=== PATIENT | female | born 1990 | race Caucasian/White ===

== ENCOUNTER → 2020-02-25 | Outpatient (CLI) | payer SELFPAY ==
[2020-02-25 14:24] LABS: HEMATOCRIT 38.7 % (36.0-47.0); HEMOGLOBIN 11.9 g/dl (12.0-15.5); MEAN CORPUSCULAR HEMOGLOBIN 28.8 pg (27.0-33.0); MEAN CORPUSCULAR HGB CONC 30.7 g/dl (32.0-36.5); MEAN CORPUSCULAR VOLUME 93.7 fl (80.0-96.0); PLATELET COUNT, AUTOMATED 285 10^3/uL (150-450); RED BLOOD COUNT 4.13 10^6/uL (4.00-5.40); WHITE BLOOD COUNT 8.4 10^3/uL (4.0-10.0)
[2020-02-25 14:50] LABS: ALBUMIN 3.9 GM/DL (3.2-5.2); ALT/SGPT 19 U/L (12-78); BILIRUBIN,TOTAL 0.2 MG/DL (0.2-1.0); BLOOD UREA NITROGEN 13 MG/DL (7-18); CALCIUM LEVEL 9.1 MG/DL (8.5-10.1); CARBON DIOXIDE LEVEL 33 MEQ/L (21-32); CHLORIDE LEVEL 102 MEQ/L (98-107); CREATININE FOR GFR 0.89 MG/DL (0.55-1.30); GLOMERULAR FILTRATION RATE > 60.0 (>60); GLUCOSE, FASTING 90 MG/DL (70-100); POTASSIUM SERUM 4.6 MEQ/L (3.5-5.1); SODIUM LEVEL 137 MEQ/L (136-145); TOTAL PROTEIN 7.8 GM/DL (6.4-8.2)
[2020-02-25 14:52] LABS: HCG, SERUM QUALITATIVE NEGATIVE (NEGATIVE)
[2020-02-25 15:06] LABS: HEPATITIS B SURFACE ANTIGEN NEGATIVE (NEGATIVE)
[2020-02-25 15:34] LABS: HEPATITIS C VIRUS ABY INDEX 0.3 INDEX (<0.8)
[2020-02-25 15:35] LABS: HIV 1&2 SCREEN CENTAUR NEGATIVE (NEGATIVE)
[2020-02-25 16:37] LABS: CHLAMYDIA DNA AMPLIFICATION NEGATIVE (NEGATIVE); GC DNA AMPLIFICATION NEGATIVE (NEGATIVE)
--- NOTE | 2020-02-26 17:59 | ECGEPIP ---
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
== END ==
LOC: M LAB 12:33
PROVIDERS: ATTEND Family Medicine
DX: F11.20 Opioid dependence, uncomplicated (principal)

== ENCOUNTER → 2020-03-12 | Outpatient (CLI) | payer MEDICAID, OTHER | LOC: M LAB 13:23 | PROVIDERS: ATTEND Family Medicine | DX: F11.20 Opioid dependence, uncomplicated (principal) | CPT/HCPCS: 36415; G0480 ==

== ENCOUNTER → 2020-03-17 | Outpatient (CLI) | payer MEDICAID | LOC: M LAB 14:13 | PROVIDERS: ATTEND Family Medicine | DX: Z79.899 Other long term (current) drug therapy (principal) | CPT/HCPCS: 36415; G0480 ==

== ENCOUNTER → 2020-07-09 | Outpatient (CLI) | payer MEDICAID | LOC: M LAB 11:20 | PROVIDERS: ATTEND Physician Assistant Medical | DX: Z02.2 Encounter for examination for admission to residential institution (principal) ==

== ENCOUNTER → 2020-07-09 | Outpatient (CLI) | payer MEDICAID ==
[2020-07-09 12:24] LABS: APPEARANCE, URINE HAZY (CLEAR); BACTERIA, URINE AUTO 1+ (NEGATIVE); BILIRUBIN, URINE AUTO NEGATIVE (NEGATIVE); BLOOD, URINE BLOOD NEGATIVE (NEGATIVE); COLOR, URINE YELLOW (YELLOW); GLUCOSE, URINE (UA) AUTO NEGATIVE (NEGATIVE); KETONE, URINE AUTO NEGATIVE (NEGATIVE); LEUKOCYTE ESTERASE, URINE AUTO NEGATIVE (NEGATIVE); NITRITE, URINE AUTO NEGATIVE (NEGATIVE); PROTEIN, URINE AUTO NEGATIVE (NEGATIVE); RBC, URINE AUTO 0 /HPF (0-3); SPECIFIC GRAVITY URINE AUTO 1.021 (1.002-1.035); SQUAMOUS EPITHELIAL CELL UR AU 3 /HPF (0-6); UROBILINOGEN, URINE AUTO 0.2 mg/dL (0.0-2.0); WBC, URINE AUTO 0 /HPF (0-3)
[2020-07-09 12:26] LABS: HEMATOCRIT 36.3 % (36.0-47.0); HEMOGLOBIN 11.7 g/dl (12.0-15.5); MEAN CORPUSCULAR HEMOGLOBIN 30.2 pg (27.0-33.0); MEAN CORPUSCULAR HGB CONC 32.2 g/dl (32.0-36.5); MEAN CORPUSCULAR VOLUME 93.6 fl (80.0-96.0); PLATELET COUNT, AUTOMATED 284 10^3/uL (150-450); RED BLOOD COUNT 3.88 10^6/uL (4.00-5.40); WHITE BLOOD COUNT 7.5 10^3/uL (4.0-10.0)
[2020-07-09 12:27] LABS: BASO % 0.2 % (0.0-1.0); EOS # 0.1 10^3/uL (0.0-0.5); EOS % 1.7 % (0.0-3.0); HEMATOCRIT 35.4 % (36.0-47.0); HEMOGLOBIN 11.5 g/dl (12.0-15.5); LYMPH # 3.1 10^3/uL (1.5-5.0); LYMPH % 38.1 % (24.0-44.0); MEAN CORPUSCULAR HEMOGLOBIN 30.4 pg (27.0-33.0); MEAN CORPUSCULAR HGB CONC 32.5 g/dl (32.0-36.5); MEAN CORPUSCULAR VOLUME 93.7 fl (80.0-96.0); MONO # 0.4 10^3/uL (0.0-0.8); MONO % 5.2 % (2.0-8.0); NEUTROPHILS # 4.4 10^3/uL (1.5-8.5); NEUTROPHILS % 54.6 % (36.0-66.0); PLATELET COUNT, AUTOMATED 284 10^3/uL (150-450); RED BLOOD COUNT 3.78 10^6/uL (4.00-5.40); WHITE BLOOD COUNT 8.1 10^3/uL (4.0-10.0)
[2020-07-09 12:44] LABS: ALBUMIN 3.5 GM/DL (3.2-5.2); ALT/SGPT 19 U/L (12-78); BILIRUBIN,TOTAL 0.1 MG/DL (0.2-1.0); BLOOD UREA NITROGEN 11 MG/DL (7-18); CALCIUM LEVEL 9.2 MG/DL (8.5-10.1); CARBON DIOXIDE LEVEL 28 MEQ/L (21-32); CHLORIDE LEVEL 105 MEQ/L (98-107); CREATININE FOR GFR 0.57 MG/DL (0.55-1.30); GLOMERULAR FILTRATION RATE > 60.0 (>60); GLUCOSE, FASTING 88 MG/DL (70-100); POTASSIUM SERUM 4.1 MEQ/L (3.5-5.1); SODIUM LEVEL 137 MEQ/L (136-145)
[2020-07-09 12:49] LABS: HCG, SERUM QUALITATIVE NEGATIVE (NEGATIVE)
[2020-07-09 13:03] LABS: HEPATITIS B SURFACE ANTIGEN NEGATIVE (NEGATIVE)
[2020-07-09 13:04] LABS: ALBUMIN 3.5 GM/DL (3.2-5.2); ALT/SGPT 17 U/L (12-78); BILIRUBIN,TOTAL 0.2 MG/DL (0.2-1.0); BLOOD UREA NITROGEN 10 MG/DL (7-18); CALCIUM LEVEL 9.5 MG/DL (8.5-10.1); CARBON DIOXIDE LEVEL 27 MEQ/L (21-32); CHLORIDE LEVEL 103 MEQ/L (98-107); CREATININE FOR GFR 0.56 MG/DL (0.55-1.30); GLOMERULAR FILTRATION RATE > 60.0 (>60); GLUCOSE, FASTING 87 MG/DL (70-100); POTASSIUM SERUM 4.1 MEQ/L (3.5-5.1); SODIUM LEVEL 135 MEQ/L (136-145); TOTAL PROTEIN 7.1 GM/DL (6.4-8.2)
[2020-07-09 13:31] LABS: HEPATITIS C VIRUS ABY INDEX < 0.0 INDEX (<0.8)
[2020-07-09 13:32] LABS: HIV 1&2 SCREEN CENTAUR NEGATIVE (NEGATIVE)
[2020-07-09 13:32] LABS: HEPATITIS B SURFACE ANTIGEN NEGATIVE (NEGATIVE)
[2020-07-09 13:36] LABS: HEPATITIS B CORE ANTIBODY IGM NEGATIVE (NEGATIVE); HEPATITIS C VIRUS ABY INDEX < 0.0 INDEX (<0.8)
[2020-07-09 14:13] LABS: CHLAMYDIA DNA AMPLIFICATION NEGATIVE (NEGATIVE); GC DNA AMPLIFICATION NEGATIVE (NEGATIVE)
[2020-07-09 14:32] LABS: HEPATITIS A ANTIBODY IGM NEGATIVE (NEGATIVE)
--- NOTE | 2020-07-10 20:22 | ECGEPIP ---
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 No significant change compared with 02/25/2020. Electronically Signed on 07-10-2020 20:21:58 EDT by Robert Reyes
== END ==
LOC: M LAB 11:17
PROVIDERS: ATTEND Family Medicine
DX: F11.20 Opioid dependence, uncomplicated (principal)

== ENCOUNTER → 2020-07-22 | Outpatient (REF) | payer MEDICAID, OTHER ==
[2020-07-22 15:35] LABS: HEMATOCRIT 35.6 % (36.0-47.0); HEMOGLOBIN 11.7 g/dl (12.0-15.5); MEAN CORPUSCULAR HEMOGLOBIN 30.8 pg (27.0-33.0); MEAN CORPUSCULAR HGB CONC 32.9 g/dl (32.0-36.5); MEAN CORPUSCULAR VOLUME 93.7 fl (80.0-96.0); PLATELET COUNT, AUTOMATED 308 10^3/uL (150-450); WHITE BLOOD COUNT 8.7 10^3/uL (4.0-10.0)
[2020-07-22 16:02] LABS: TOTAL PROTEIN,RANDOM URINE 17.4 MG/DL (0.0-12.0)
[2020-07-22 16:10] LABS: ALT/SGPT 16 U/L (12-78); BILIRUBIN,TOTAL 0.2 MG/DL (0.2-1.0); CREATININE FOR GFR 0.59 MG/DL (0.55-1.30); GLOMERULAR FILTRATION RATE > 60.0 (>60); LDH LACTATE DEHYDROGENASE 167 U/L (84-246)
[2020-07-22 16:50] LABS: HIV 1&2 SCREEN CENTAUR NEGATIVE (NEGATIVE)
== END ==
LOC: M PLALAB 14:06
PROVIDERS: ATTEND Advanced Practice Midwife
DX: Z36.89 Encounter for other specified antenatal screening (principal); Z3A.11 11 weeks gestation of pregnancy

== ENCOUNTER → 2020-09-16 | Outpatient (CLI) | payer OTHER ==
--- NOTE | 2020-09-16 10:14 | REP ---
INDICATION: ANATOMY/MANAS 02/05/21. COMPARISON: None. TECHNIQUE: Transabdominal obstetric sonography. FINDINGS: Scanning through the gravid uterus demonstrates a viable single intrauterine gestation in variable lie. motion is observed and heart rate is recorded at 130 beats per minute. A the posterior placenta is seen, grade 0, without evidence of placenta previa. Closed cervical length is measured at 3.6 cm transabdominally. No extrauterine abnormality is observed. Amniotic fluid is subjectively normal. Four-chamber heart, left and right ventricular outflow tract views, and spine are less than optimally seen due to position. The following additional anatomic structures are identified felt to be unremarkable: cranium, intracranial contents, face and profile, nose and lips, diaphragm, left-sided stomach, abdominal wall cord insertion, right and left kidney, urinary bladder, upper and lower extremities, three-vessel cord.. Biometry chart: BPD 4.1 cm, 18 weeks 3 days Head circumference 15.8 cm, 18 weeks 5 days Abdominal circumference 14.4 cm, 19 weeks 5 days Femur length 2.8 cm, 18 weeks 5 days Humeral length 2.8 cm, 19 weeks 1 day HC AC ratio normal 1.1 Cephalic index normal 0.71 Estimated weight 271 g, 0 lb 9 oz, 20th percentile for 19 weeks 5 days IMPRESSION: Viable single intrauterine gestation at 19 weeks 0 days by today's composite sonographic criteria. MANAS by today's sonography February 10, 2021. No complication identified. Expected gestational age estimate based on prior known MANAS of February 05, 2021 is 19 weeks 5 days. Four-chamber heart, outflow tract views, and spine less than optimally seen today. <Electronically signed by Jesus Noel > 09/16/20 1010
== END ==
LOC: M WHC 08:48
PROVIDERS: ATTEND Advanced Practice Midwife
DX: Z36.89 Encounter for other specified antenatal screening (principal); Z3A.19 19 weeks gestation of pregnancy

== ENCOUNTER → 2020-10-01 | Outpatient (CLI) | payer OTHER | LOC: M WHC 14:09 | PROVIDERS: ATTEND Specialist | DX: Z34.82 Encounter for supervision of other normal pregnancy, second trimester (principal); Z53.9 Procedure and treatment not carried out, unspecified reason ==

== ENCOUNTER → 2020-10-19 | Outpatient (CLI) | payer OTHER ==
--- NOTE | 2020-10-19 10:30 | REP ---
INDICATION: F/U ANATOMY COMPARISON: 09/16/2020 TECHNIQUE: Transabdominal obstetrical ultrasound with color Doppler evaluation. FINDINGS: Examination demonstrates a single live intrauterine in cephalic presentation. motion is identified by technologist. Placenta is noted posterior and grade 1 without evidence for placenta previa or abruption. Amniotic fluid volume is normal. Cervix measures 3.8 cm in length and appears closed.. Selected gestational age: 24 weeks 3 days with MANAS 02/05/2021. Gestational age by current measurements 23 weeks 6 days with MANAS 02/09/2021. FHR equals 126 beats per minute. Estimated weight 658 grams (26thpercentile). Anatomical assessment demonstrates normal structures including cranium, choroid plexus, cavum, cerebellum/posterior fossa, facial features, lungs, diaphragm, stomach, cord insertion/three-vessel cord, kidneys/bladder, spine, and extremities. IMPRESSION: 1. Single live intrauterine in cephalic presentation demonstrating appropriate interval growth. 2. Continued limited evaluation of the heart/ventricular outflow tracts. Current examination now demonstrates normal appearance of the spine. <Electronically signed by Pranav Bella > 10/19/20 1028
== END ==
LOC: M WHC 09:01
PROVIDERS: ATTEND Specialist
DX: Z34.82 Encounter for supervision of other normal pregnancy, second trimester (principal); Z36.2 Encounter for other antenatal screening follow-up; Z3A.24 24 weeks gestation of pregnancy

== ENCOUNTER → 2020-11-19 | Outpatient (CLI) | payer OTHER ==
[2020-11-19 18:06] LABS: HEMATOCRIT 33.4 % (36.0-47.0); MEAN CORPUSCULAR HEMOGLOBIN 32.1 pg (27.0-33.0); MEAN CORPUSCULAR HGB CONC 32.9 g/dl (32.0-36.5); MEAN CORPUSCULAR VOLUME 97.4 fl (80.0-96.0); PLATELET COUNT, AUTOMATED 240 10^3/uL (150-450); RED BLOOD COUNT 3.43 10^6/uL (4.00-5.40)
[2020-11-19 19:43] LABS: GC DNA AMPLIFICATION NEGATIVE (NEGATIVE)
== END ==
LOC: M PLALAB 14:55
PROVIDERS: ATTEND Obstetrics & Gynecology
DX: O16.9 Unspecified maternal hypertension, unspecified trimester (principal)

== ENCOUNTER → 2020-11-19 | Outpatient (CLI) | payer OTHER ==
[2020-11-19 18:06] LABS: HEMATOCRIT 32.5 % (36.0-47.0); HEMOGLOBIN 10.8 g/dl (12.0-15.5); MEAN CORPUSCULAR HGB CONC 33.2 g/dl (32.0-36.5); MEAN CORPUSCULAR VOLUME 96.4 fl (80.0-96.0); PLATELET COUNT, AUTOMATED 238 10^3/uL (150-450); RED BLOOD COUNT 3.37 10^6/uL (4.00-5.40); WHITE BLOOD COUNT 8.1 10^3/uL (4.0-10.0)
[2020-11-19 18:29] LABS: ALBUMIN 2.8 GM/DL (3.2-5.2); ALT/SGPT 20 U/L (12-78); BILIRUBIN,TOTAL 0.1 MG/DL (0.2-1.0); BLOOD UREA NITROGEN 9 MG/DL (7-18); CALCIUM LEVEL 9.5 MG/DL (8.5-10.1); CARBON DIOXIDE LEVEL 27 MEQ/L (21-32); CHLORIDE LEVEL 104 MEQ/L (98-107); CREATININE FOR GFR 0.67 MG/DL (0.55-1.30); GLOMERULAR FILTRATION RATE > 60.0 (>60); GLUCOSE, FASTING 103 MG/DL (70-100); POTASSIUM SERUM 4.2 MEQ/L (3.5-5.1); SODIUM LEVEL 138 MEQ/L (136-145); TOTAL PROTEIN 6.4 GM/DL (6.4-8.2)
[2020-11-19 18:31] LABS: CREATININE,RANDOM URINE 44.3 MG/DL; TOTAL PROTEIN,RANDOM URINE 5.3 MG/DL (0.0-12.0)
== END ==
LOC: M PLALAB 14:57
PROVIDERS: ATTEND Obstetrics & Gynecology
DX: O09.299 Supervision of pregnancy with other poor reproductive or obstetric history, unspecified trimester (principal)

== ENCOUNTER → 2020-12-04 | Outpatient (CLI) | payer OTHER ==
--- NOTE | 2020-12-04 14:09 | REP ---
INDICATION: F/U ANATOMY COMPARISON: 10/19/2020 TECHNIQUE: Transabdominal obstetrical ultrasound with color Doppler evaluation. FINDINGS: Examination demonstrates a single live intrauterine in cephalic presentation. motion is identified by technologist. Placenta is noted posterior and grade 1 without evidence for placenta previa or abruption. Amniotic fluid volume is normal. Cervix measures 3.0 cm in length and appears closed.. Selected gestational age: 31 weeks 0 days with MANAS 02/05/2021. Gestational age by current measurements 29 weeks 6 days with MANAS 02/13/2021. FHR equals 129 beats per minute. Estimated weight 1559 grams (20thpercentile). ASHLYN: 13.7 cm Anatomical assessment demonstrates normal heart/ventricular outflow tracts. IMPRESSION: Single live intrauterine in cephalic presentation demonstrating appropriate estimated weight. In conjunction with prior examination anatomical assessment is complete and normal. Anatomical assessment <Electronically signed by Pranav Bella > 12/04/20 [id number]
== END ==
LOC: M WHC 13:04
PROVIDERS: ATTEND Advanced Practice Midwife
DX: O10.013 Pre-existing essential hypertension complicating pregnancy, third trimester (principal); Z3A.31 31 weeks gestation of pregnancy

== ENCOUNTER → 2021-01-08 | Outpatient (REF) | payer OTHER | LOC: M SFHCWAGY 17:00 | PROVIDERS: ATTEND Advanced Practice Midwife | DX: O10.013 Pre-existing essential hypertension complicating pregnancy, third trimester (principal); Z36.89 Encounter for other specified antenatal screening; Z3A.00 Weeks of gestation of pregnancy not specified ==